=== PATIENT | male | born 1990 | race Caucasian/White ===

== ENCOUNTER → 2025-04-09 | Emergency (ER) | payer MEDICAID ==
[~2025-04-09] VITALS: Ht 177.8 cm; Wt 72.6 kg
[~2025-04-09] MED LIST: CYCL10TA9 PO; CYCLOBENZAPRINE HCL 10 MG TABLET ONE; NAPR-1009 PO; NAPROXEN 500 MG TABLET ONE
[2025-04-10 00:02] VITALS: BP 151/84
[2025-04-10] MEDS: CYCLOBENZAPRINE HCL 10 MG TABLET PO ONE (00:32)
[2025-04-10] MEDS: NAPROXEN 500 MG TABLET PO ONE (00:32)
[2025-04-10 00:43] VITALS: BP 151/84; O2SAT 98
== END | disposition home or self-care (01) ==
LOC: ER 23:57
DX: S06.0X0A Concussion without loss of consciousness, initial encounter (principal); S16.1XXA Strain of muscle, fascia and tendon at neck level, initial encounter; S46.912A Strain of unspecified muscle, fascia and tendon at shoulder and upper arm level, left arm, initial encounter; F17.210 Nicotine dependence, cigarettes, uncomplicated; V43.52XA Car driver injured in collision with other type car in traffic accident, initial encounter; Y93.89 Activity, other specified; Y92.410 Unspecified street and highway as the place of occurrence of the external cause; Y99.9 Unspecified external cause status
CPT/HCPCS: A4606; A4663